=== PATIENT | female | born 1995 | race Caucasian/White ===

== ENCOUNTER → 2016-10-17 | Outpatient (CLI) | payer OTHER ==
--- NOTE | 2016-10-17 21:43 | REP ---
Clinical: Anatomical evaluation. Comparison: None . Findings: Examination demonstrates a single live intrauterine in variable presentation. motion is identified by technologist. Placenta is noted anteriorly and grade zero without evidence for placenta previa or abruption. Amniotic fluid volume is normal. Cervix measures 3.6 cm in length and appears closed. No evidence for nuchal cord. Gestational age by LMP 20 weeks 3 days with CRISTINA 03/03/2017 . Gestational age by current measurements 21 weeks 2 days with CRISTINA 02/25/2017 . FHR equals 143 beats per minute. BPD 4.8 cm 20 weeks 4 days HC 17.8 cm 20 weeks 2 days AC 17.1 cm 22 weeks 0 days FL 3.6 cm 21 weeks 3 days HL 3.5 cm 22 weeks 0 days HC/AC ratio 1.04 Estimated weight 434 grams ( 90th percentile). Anatomical assessment demonstrates normal structures including cranium, choroid plexus, cavum, cerebellum/posterior fossa, facial features, lungs, four-chamber heart/ventricular outflow tracts, diaphragm, stomach, cord insertion/three-vessel cord, kidneys/bladder, spine, and extremities. Impression: Single live intrauterine in variable presentation. Appropriate interval growth is appreciated. Anatomical assessment is complete and normal. Signed by Ari Oden MD 10/17/2016 09:34 P
== END ==
LOC: M RAD 11:51
PROVIDERS: ATTEND Nurse Practitioner Women's Health
DX: Z34.90 Encounter for supervision of normal pregnancy, unspecified, unspecified trimester (principal); Z3A.20 20 weeks gestation of pregnancy

== ENCOUNTER 2016-11-22 23:02 | Emergency (ER) | payer OTHER ==
[2016-11-23] MEDS ORDERED: AMOXICILLIN 500 MG CAP As Ordered ONE (00:46)
--- NOTE | 2016-11-23 00:58 | EDDOCDS ---
Nurse's Notes [facility] Name: Georgia Foster Age: 21 yrs Sex: Female : 1995 Arrival Date: 11/22/2016 Time: 23:02 Bed Triage 2 Private MD: No PCP Diagnosis: Streptococcal pharyngitis Presentation: 11/22 23:09 Presenting complaint: Patient states: since Sunday she has had sore throat that "feels nn1 like its closing up", bilateral ear pain, nasal congestion. Patient reports she is 6 months . Presenting complaint: States 2 children she lives with have bronchitis. Adult Sepsis Screening: The patient does not have new or worsening altered mentation. Patient's respiratory rate is less than 22. Systolic blood pressure is greater than 100. Patient has a qSOFA score of 0- Negative Sepsis Screen. Suicide/Homicide risk assessment- the patient denies having any suicidal and/or homicidal ideations and does not present with any other emotional, behavioral or mental health complaints. 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 Transition of care: patient was not received from another setting of care. 23:09 Acuity: ANEL Level 4 nn1 23:09 Method Of Arrival: Walkin/Carried/Asstd nn1 Triage Assessment: 23:13 General: Appears in no apparent distress, comfortable, Behavior is appropriate for age, nn1 cooperative. Pain: Location: right ear and left ear and throat Pain currently is 7 out of 10 on a pain scale. Pt Declines HIV testing. EENT: Throat is pink with gag reflex present. Respiratory: Airway is patent Respiratory effort is even, unlabored, Respiratory pattern is regular, symmetrical, Denies cough. Derm: Skin is pink, warm & dry. Historical: - Allergies: Latex; - Home Meds: 1. Vitamin Oral tab 1 tab once daily 2. metronidazole 500 mg Oral tab 1 tab every 6 hours 3. terconazole 0.4 % vaginal crea 1 applicatorful once daily - PMHx: UTI; - PSHx: Appendectomy; - Social history: Smoking status: Patient states was never smoker of tobacco. No barriers to communication noted, The patient speaks fluent Urdu, Speaks appropriately for age. - Family history: Not pertinent. - : The pt / caregiver states he / she is not on anticoagulants. Home medication list is obtained from the patient. - Exposure Risk Screening:: None identified. Screenin/09 00:15 Screening information is obtained from the patient. Fall risk: No risks identified. [facility] Assistance ADL's: requires no assistance with activities of daily living. Abuse/DV Screen: The patient / caregiver reports he/she is: not in a situation that causes fear, pain or injury. Nutritional screening: No deficits noted. Advance Directives: There is no active DNR order. home support is adequate. Assessment: 00:15 General: Appears in no apparent distress, comfortable, Behavior is appropriate for age, kmg1 cooperative, pleasant. Pain: Location: right ear and left ear and throat Pain currently is 7 out of 10 on a pain scale. Quality of pain is described as sore. EENT: Reports pain in right ear, left ear, left aspect of posterior pharynx and right aspect of posterior pharynx. Respiratory: Airway is patent Respiratory effort is even, unlabored, Respiratory pattern is regular, symmetrical. 00:53 Reassessment: Patient appears in no apparent distress at this time. No change in prior [facility] assessment. Vital Signs: 11/22 23:04 BP 129 / 73; Pulse 81; Resp 18 S; Temp 97.1(O); Pulse Ox 100% on R/A; Weight 88 kg (M); gr2 Height 5 ft. 6 in. (167.64 cm) (M); Pain 7/10; 23:04 Body Mass Index 31.31 (88.00 kg, 167.64 cm) gr2 Vitals: 23:04 Log In Time: November 22, 2016 at 23:04. gr2 11/23 00:22 Strep Screen is obtained and tested: Positive. Heart Tones 140BPM. [facility] [place] Course: 11/22 23:04 Patient visited by Zulma Najera. gr2 23:04 No PCP is Private Physician. gr2 23:04 Patient moved to Waiting gr2 23:08 Patient visited by Zulma Najera. gr2 23:08 Patient moved to Pre RCE gr2 23:11 Triage Initiated nn1 23:29 Patient moved to Triage 2 km 23:32 Julito Hopper RPA-C is PHCP. ck7 23:32 Cedric Rajan MD is Attending Physician. ck7 23:32 Patient visited by Julito Hopper RPA-C. ck7 0209 00:02 Patient visited by Julito Hopper RPA-C. ck7 00:15 The patient / caregiver is instructed regarding the plan of care and ED course. kmg1 00:15 -Influenza A&B Rapid Antigen - Nose Sent. kmg1 00:29 [facility] Payment Agreement was scanned into [employer] and attached to record. hs2 00:35 Patient visited by Julito Hopper RPA-C. ck7 00:53 No IV's were initiated during this patient's visit. No procedures done that require [facility] assistance. 00:57 Patient visited by Flora Santana RN. [facility] Administered Medications: 00:49 Drug: Amoxicillin 500 mg [amoxicillin 500 mg capsule (1 caps)] Route: PO; km Order Results: Lab Order: -Influenza A&B Rapid Antigen - Nose; SPEC'M 17 00:11 Test: INFLUENZA A RAPID SCR by ICA; Value: INFLUENZA A RESULTS NEGATIVE; Status: F Test: INFLUENZA A RAPID SCR by ICA; Value: Comments:; Status: F Test: INFLUENZA B RAPID SCR by ICA; Value: INFLUENZA B RESULTS NEGATIVE; Status: F Test Note: ; The Influenza test is a direct rapid immunoassay for the qualitative detection of Influenza viral antigen. Cell culture (Viral Culture) testing should be considered to confirm NEGATIVE results and to assist in detecting other viruses that can provide similar clinical symptoms. Please contact the lab within 24 hours ([phone]) if confirmatory testing is desired. Outcome: 00:44 Discharge ordered by Provider. ck7 00:53 Discharge Assessment: Patient awake, alert and oriented x 3. No cognitive and/or kmg1 functional deficits noted. Patient verbalized understanding of disposition instructions. patient administered narcotics - no. The following High Risk Discharge criteria are identified: None. Discharged to home ambulatory. Condition: stable. Discharge instructions given to patient, Instructed on discharge instructions, follow up and referral plans. medication usage, Demonstrated understanding of instructions, medications, Pt was receptive of discharge instructions/ teaching. Prescriptions given X 1. No special radiology studies were completed. Property sent home with patient. 00:57 Patient left the ED. [facility] Signatures: Flora Santana RN RN [facility] Julito Hopper RPA-C RPA-CckFerdinand Martineze gr2 Daniela Rogers,RN RN nn1 Casie Salas, Reg Reg hs2 MTDD
--- NOTE | 2016-11-23 00:58 | EDDOCDS ---
Physician Documentation [facility] Name: Georgia Foster Age: 21 yrs Sex: Female : 1995 Arrival Date: 11/22/2016 Time: 23:02 Bed Triage 2 Private MD: No PCP Disposition: 11/23/16 00:44 Discharged to Home/Self Care. Impression: Streptococcal pharyngitis. - Condition is Stable. - Discharge Instructions: Salt Water Gargle, Strep Throat. - Prescriptions for Amoxicillin 500 mg Oral Capsule - take 1 capsule by ORAL route every 8 hours for 10 days; 30 tablet. - Medication Reconciliation, Local Pharmacy Hours form. - Follow up: Private Physician; When: 2 - 3 days; Reason: Recheck today's complaints, Continuance of care. - Problem is new. - Symptoms have improved. Historical: - Allergies: Latex; - Home Meds: 1. Vitamin Oral tab 1 tab once daily 2. metronidazole 500 mg Oral tab 1 tab every 6 hours 3. terconazole 0.4 % vaginal crea 1 applicatorful once daily - PMHx: UTI; - PSHx: Appendectomy; - Social history: Smoking status: Patient states was never smoker of tobacco. No barriers to communication noted, The patient speaks fluent Nepali, Speaks appropriately for age. - Family history: Not pertinent. - : The pt / caregiver states he / she is not on anticoagulants. Home medication list is obtained from the patient. - Exposure Risk Screening:: None identified. Vital Signs: 11/22 23:04 BP 129 / 73; Pulse 81; Resp 18 S; Temp 97.1(O); Pulse Ox 100% on R/A; Weight 88 kg / gr2 194.01 lbs (M); Height 5 ft. 6 in. (167.64 cm) (M); Pain 7/10; 23:04 Body Mass Index 31.31 (88.00 kg, 167.64 cm) gr2 MDM: 23:47 Heart Tones ordered. ck7 23:47 Obtain sample by nasopharyngeal swab ordered. ck7 23:47 Strep Screen, Nursing ordered. ck7 23:48 -Influenza A&B Rapid Antigen - Nose Ordered. EDMS 23:49 Financial registration complete. pm4 11/23 00:29 [facility] Payment Agreement was scanned into [employer] and attached to record. hs2 00:43 Amoxicillin 500 mg PO once ordered. ck7 00:43 -Influenza A&B Rapid Antigen - Nose Reviewed. ck7 Administered Medications: 00:49 Drug: Amoxicillin 500 mg [amoxicillin 500 mg capsule (1 caps)] Route: PO; kmg1 Signatures: Dispatcher [employer] EDMS Flora Santana RN RN kmg1 Julito Hopper, CECILIAC RPA-Cck7 Daniela Rogers RN RN nn1 Casie Salas, Reg Reg hs2 Man Kelley, Reg Reg pm4 The chart was reviewed and I authenticate all verbal orders and agree with the evaluation and treatment provided.Attachments: 00:29 [facility] Payment Agreement hs2 MTDD
--- NOTE | 2016-11-25 01:57 | EDDOCDS ---
Nurse's Notes [facility] Name: Georgia Foster Age: 21 yrs Sex: Female : 1995 Arrival Date: 11/22/2016 Time: 23:02 Bed Triage 2 Private MD: No PCP Diagnosis: Streptococcal pharyngitis Presentation: 11/22 23:09 Presenting complaint: Patient states: since Sunday she has had sore throat that "feels nn1 like its closing up", bilateral ear pain, nasal congestion. Patient reports she is 6 months . Presenting complaint: States 2 children she lives with have bronchitis. Adult Sepsis Screening: The patient does not have new or worsening altered mentation. Patient's respiratory rate is less than 22. Systolic blood pressure is greater than 100. Patient has a qSOFA score of 0- Negative Sepsis Screen. Suicide/Homicide risk assessment- the patient denies having any suicidal and/or homicidal ideations and does not present with any other emotional, behavioral or mental health complaints. 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 Transition of care: patient was not received from another setting of care. 23:09 Acuity: ANEL Level 4 nn1 23:09 Method Of Arrival: Walkin/Carried/Asstd nn1 Triage Assessment: 23:13 General: Appears in no apparent distress, comfortable, Behavior is appropriate for age, nn1 cooperative. Pain: Location: right ear and left ear and throat Pain currently is 7 out of 10 on a pain scale. Pt Declines HIV testing. EENT: Throat is pink with gag reflex present. Respiratory: Airway is patent Respiratory effort is even, unlabored, Respiratory pattern is regular, symmetrical, Denies cough. Derm: Skin is pink, warm & dry. Historical: - Allergies: Latex; - Home Meds: 1. Vitamin Oral tab 1 tab once daily 2. metronidazole 500 mg Oral tab 1 tab every 6 hours 3. terconazole 0.4 % vaginal crea 1 applicatorful once daily - PMHx: UTI; - PSHx: Appendectomy; - Social history: Smoking status: Patient states was never smoker of tobacco. No barriers to communication noted, The patient speaks fluent Tajik, Speaks appropriately for age. - Family history: Not pertinent. - : The pt / caregiver states he / she is not on anticoagulants. Home medication list is obtained from the patient. - Exposure Risk Screening:: None identified. Screenin/09 00:15 Screening information is obtained from the patient. Fall risk: No risks identified. [facility] Assistance ADL's: requires no assistance with activities of daily living. Abuse/DV Screen: The patient / caregiver reports he/she is: not in a situation that causes fear, pain or injury. Nutritional screening: No deficits noted. Advance Directives: There is no active DNR order. home support is adequate. Assessment: 00:15 General: Appears in no apparent distress, comfortable, Behavior is appropriate for age, kmg1 cooperative, pleasant. Pain: Location: right ear and left ear and throat Pain currently is 7 out of 10 on a pain scale. Quality of pain is described as sore. EENT: Reports pain in right ear, left ear, left aspect of posterior pharynx and right aspect of posterior pharynx. Respiratory: Airway is patent Respiratory effort is even, unlabored, Respiratory pattern is regular, symmetrical. 00:53 Reassessment: Patient appears in no apparent distress at this time. No change in prior [facility] assessment. Vital Signs: 11/22 23:04 BP 129 / 73; Pulse 81; Resp 18 S; Temp 97.1(O); Pulse Ox 100% on R/A; Weight 88 kg (M); gr2 Height 5 ft. 6 in. (167.64 cm) (M); Pain 7/10; 23:04 Body Mass Index 31.31 (88.00 kg, 167.64 cm) gr2 Vitals: 23:04 Log In Time: November 22, 2016 at 23:04. gr2 11/23 00:22 Strep Screen is obtained and tested: Positive. Heart Tones 140BPM. [facility] ED Course: 11/22 23:04 Patient visited by Zulma Najera. gr2 23:04 No PCP is Private Physician. gr2 23:04 Patient moved to Waiting gr2 23:08 Patient visited by Zulma Najera. gr2 23:08 Patient moved to Pre RCE gr2 23:11 Triage Initiated nn1 23:29 Patient moved to Triage 2 km 23:32 Julito Hopper RPA-C is PHCP. ck7 23:32 Cedric Rajan MD is Attending Physician. ck7 23:32 Patient visited by Julito Hopper RPA-C. ck7 11/23 00:02 Patient visited by Julito Hopper RPA-C. ck7 00:15 The patient / caregiver is instructed regarding the plan of care and ED course. kmg1 00:15 -Influenza A&B Rapid Antigen - Nose Sent. kmg1 00:29 [facility] Payment Agreement was scanned into [employer] and attached to record. hs2 00:35 Patient visited by Julito Hopper RPA-C. ck7 00:53 No IV's were initiated during this patient's visit. No procedures done that require [facility] assistance. 00:57 Patient visited by Flora Santana RN. kmg1 11:15 T-Sheet-- Draft Copy was scanned into [employer] and attached to record. gb Administered Medications: 00:49 Drug: Amoxicillin 500 mg [amoxicillin 500 mg capsule (1 caps)] Route: PO; kmg1 Order Results: Lab Order: -Influenza A&B Rapid Antigen - Nose; SPEC'M 17 00:11 Test: INFLUENZA A RAPID SCR by ICA; Value: INFLUENZA A RESULTS NEGATIVE; Status: F Test: INFLUENZA A RAPID SCR by ICA; Value: Comments:; Status: F Test: INFLUENZA B RAPID SCR by ICA; Value: INFLUENZA B RESULTS NEGATIVE; Status: F Test Note: ; The Influenza test is a direct rapid immunoassay for the qualitative detection of Influenza viral antigen. Cell culture (Viral Culture) testing should be considered to confirm NEGATIVE results and to assist in detecting other viruses that can provide similar clinical symptoms. Please contact the lab within 24 hours ([phone]) if confirmatory testing is desired. Outcome: 00:44 Discharge ordered by Provider. ck7 00:53 Discharge Assessment: Patient awake, alert and oriented x 3. No cognitive and/or kmg1 functional deficits noted. Patient verbalized understanding of disposition instructions. patient administered narcotics - no. The following High Risk Discharge criteria are identified: None. Discharged to home ambulatory. Condition: stable. Discharge instructions given to patient, Instructed on discharge instructions, follow up and referral plans. medication usage, Demonstrated understanding of instructions, medications, Pt was receptive of discharge instructions/ teaching. Prescriptions given X 1. No special radiology studies were completed. Property sent home with patient. 00:57 Patient left the ED. [facility] Signatures: Flora Santana, RN RN kmg1 Flores Smiley, Reg Reg gb Julito Hopper, RPA-C RPA-Cck7 Zulma Najera gr2 Daniela RogersRN RN nn1 Casie Salas, Reg Reg hs2 Chart Complete MTDD
--- NOTE | 2016-11-25 01:57 | EDDOCDS ---
Physician Documentation [facility] Name: Georgia Foster Age: 21 yrs Sex: Female : 1995 Arrival Date: 11/22/2016 Time: 23:02 Bed Triage 2 Private MD: No PCP Disposition: 11/23/16 00:44 Discharged to Home/Self Care. Impression: Streptococcal pharyngitis. - Condition is Stable. - Discharge Instructions: Salt Water Gargle, Strep Throat. - Prescriptions for Amoxicillin 500 mg Oral Capsule - take 1 capsule by ORAL route every 8 hours for 10 days; 30 tablet. - Medication Reconciliation, Local Pharmacy Hours form. - Follow up: Private Physician; When: 2 - 3 days; Reason: Recheck today's complaints, Continuance of care. - Problem is new. - Symptoms have improved. Historical: - Allergies: Latex; - Home Meds: 1. Vitamin Oral tab 1 tab once daily 2. metronidazole 500 mg Oral tab 1 tab every 6 hours 3. terconazole 0.4 % vaginal crea 1 applicatorful once daily - PMHx: UTI; - PSHx: Appendectomy; - Social history: Smoking status: Patient states was never smoker of tobacco. No barriers to communication noted, The patient speaks fluent Syriac, Speaks appropriately for age. - Family history: Not pertinent. - : The pt / caregiver states he / she is not on anticoagulants. Home medication list is obtained from the patient. - Exposure Risk Screening:: None identified. Vital Signs: 11/22 23:04 BP 129 / 73; Pulse 81; Resp 18 S; Temp 97.1(O); Pulse Ox 100% on R/A; Weight 88 kg / gr2 194.01 lbs (M); Height 5 ft. 6 in. (167.64 cm) (M); Pain 7/10; 23:04 Body Mass Index 31.31 (88.00 kg, 167.64 cm) gr2 MDM: 23:47 Heart Tones ordered. ck7 23:47 Obtain sample by nasopharyngeal swab ordered. ck7 23:47 Strep Screen, Nursing ordered. ck7 23:48 -Influenza A&B Rapid Antigen - Nose Ordered. EDMS 23:49 Financial registration complete. pm4 11/23 00:29 [facility] Payment Agreement was scanned into [employer] and attached to record. hs2 00:43 Amoxicillin 500 mg PO once ordered. ck7 00:43 -Influenza A&B Rapid Antigen - Nose Reviewed. ck7 11:15 T-Sheet-- Draft Copy was scanned into [employer] and attached to record. gb Administered Medications: 00:49 Drug: Amoxicillin 500 mg [amoxicillin 500 mg capsule (1 caps)] Route: PO; km Signatures: Dispatcher [employer] EDMS Flora Santana RN RN kmg1 Flores Smiley, Reg Reg gb Julito Hopper, RPA-C RPA-Cck7 Daniela Rogers RN RN nn1 Casie Salas, Reg Reg hs2 Man Kelley, Reg Reg pm4 The chart was reviewed and I authenticate all verbal orders and agree with the evaluation and treatment provided.Attachments: 00:29 [facility] Payment Agreement hs2 11:15 T-Sheet-- Draft Copy gb Chart Complete MTDD
--- NOTE | 2016-11-25 01:57 | EDDOCDS ---
Physician Documentation [facility] Name: Georgia Foster Age: 21 yrs Sex: Female : 1995 Arrival Date: 11/22/2016 Time: 23:02 Bed Triage 2 Private MD: No PCP Disposition: 11/23/16 00:44 Discharged to Home/Self Care. Impression: Streptococcal pharyngitis. - Condition is Stable. - Discharge Instructions: Salt Water Gargle, Strep Throat. - Prescriptions for Amoxicillin 500 mg Oral Capsule - take 1 capsule by ORAL route every 8 hours for 10 days; 30 tablet. - Medication Reconciliation, Local Pharmacy Hours form. - Follow up: Private Physician; When: 2 - 3 days; Reason: Recheck today's complaints, Continuance of care. - Problem is new. - Symptoms have improved. Historical: - Allergies: Latex; - Home Meds: 1. Vitamin Oral tab 1 tab once daily 2. metronidazole 500 mg Oral tab 1 tab every 6 hours 3. terconazole 0.4 % vaginal crea 1 applicatorful once daily - PMHx: UTI; - PSHx: Appendectomy; - Social history: Smoking status: Patient states was never smoker of tobacco. No barriers to communication noted, The patient speaks fluent Maltese, Speaks appropriately for age. - Family history: Not pertinent. - : The pt / caregiver states he / she is not on anticoagulants. Home medication list is obtained from the patient. - Exposure Risk Screening:: None identified. Vital Signs: 11/22 23:04 BP 129 / 73; Pulse 81; Resp 18 S; Temp 97.1(O); Pulse Ox 100% on R/A; Weight 88 kg / gr2 194.01 lbs (M); Height 5 ft. 6 in. (167.64 cm) (M); Pain 7/10; 23:04 Body Mass Index 31.31 (88.00 kg, 167.64 cm) gr2 MDM: 23:47 Heart Tones ordered. ck7 23:47 Obtain sample by nasopharyngeal swab ordered. ck7 23:47 Strep Screen, Nursing ordered. ck7 23:48 -Influenza A&B Rapid Antigen - Nose Ordered. EDMS 23:49 Financial registration complete. pm4 11/23 00:29 [facility] Payment Agreement was scanned into [employer] and attached to record. hs2 00:43 Amoxicillin 500 mg PO once ordered. ck7 00:43 -Influenza A&B Rapid Antigen - Nose Reviewed. ck7 11:15 T-Sheet-- Draft Copy was scanned into [employer] and attached to record. gb Administered Medications: 00:49 Drug: Amoxicillin 500 mg [amoxicillin 500 mg capsule (1 caps)] Route: PO; km Signatures: Dispatcher [employer] EDMS Flora Santana RN RN kmg1 Flores Smiley, Reg Reg gb Julito Hopper, RPA-C RPA-Cck7 Daniela Rogers RN RN nn1 Casie Salas, Reg Reg hs2 Man Kelley, Reg Reg pm4 The chart was reviewed and I authenticate all verbal orders and agree with the evaluation and treatment provided.Attachments: 00:29 [facility] [place] Agreement hs2 11:15 T-Sheet-- Draft Copy gb Chart Complete MTDD
== END 2016-11-23 00:57 | disposition home or self-care (01) ==
LOC: M ED 23:02
DX: O99.512 Diseases of the respiratory system complicating pregnancy, second trimester (principal); J02.0 Streptococcal pharyngitis; Z87.440 Personal history of urinary (tract) infections; Z79.899 Other long term (current) drug therapy; Z91.040 Latex allergy status; Z3A.00 Weeks of gestation of pregnancy not specified

== ENCOUNTER 2016-12-16 13:10 | Outpatient (CLI) | payer OTHER ==
[~2016-12-16] VITALS: Ht 165.1 cm; Wt 87.0 kg
[2016-12-16 13:27] VITALS: BP 130/77
[2016-12-16 16:12] VITALS: BP 132/86
== END 2016-12-16 16:30 | disposition home or self-care (01) ==
LOC: M LDO 13:10
PROVIDERS: ATTEND Obstetrics & Gynecology
DX: O26.893 Other specified pregnancy related conditions, third trimester (principal); R10.2 Pelvic and perineal pain; O26.853 Spotting complicating pregnancy, third trimester; Z3A.29 29 weeks gestation of pregnancy

== ENCOUNTER 2016-12-24 17:12 | Outpatient (CLI) | payer OTHER ==
[~2016-12-24] VITALS: Ht 167.6 cm; Wt 88.0 kg
[2016-12-24 17:23] VITALS: BP 117/69
[2016-12-24] MEDS ORDERED: PRENTAB9 PO (17:27)
--- NOTE | 2016-12-24 21:25 | IPNPDOC ---
Obstetrical Progress Note Date of Service The patient was seen on 12/24/16 at 1930. Progress Note SUBJECTIVE: Patient is a 21-year-old female who is a who is 30 weeks 1 day gestation with an CRISTINA of 03/03/2017 based off of her first trimester ultrasound consistent with her LMP. She initiated care in her first trimester with Sherley Phipps CNM. Her has been uncomplicated. She's had a episode of bacterial vaginosis and candidiasis during her . She presents to labor and delivery tonight with complaints of decreased movement, pelvic pain, and pressure. Patient reports that she's been very active today and has not had much rest. She also reports that she is not felt the baby move and 2 days. She reports pelvic pressure and pelvic pain is worse with activity. She denies vaginal bleeding, leaking of fluid, or contractions. Since being in outpatient patient reports that she has felt the baby move multiple times. Allergies: No known drug allergies Current medications: vitamins daily. Obstetrical history: 12/18/2014: of a living female at 40 weeks 5 days gestation weighing 7 lbs. 8 oz. with no complications. 09/27/2015 a 10 week SAB. Medical history: Patient has had varicella-zoster as a child and shingles in 2013. Scoliosis. Surgical: Appendectomy 2011 OBJECTIVE: heart rate baseline 1:30, moderate variability, positive accelerations, no decelerations. Contractions not noted. Urine dipstick done. Specific gravity is 1.020, pH is 5, and a trace of protein was noted. Abdomen is soft and nontender. VITAL SIGNS: Please see below. ASSESSMENT: IUP at 30 weeks 1 day gestation, decreased movement PLAN: Patient to be discharged home with family. An abdominal binder was given to patient to help with her pelvic pain and pressure. Reviewed proper application of abdominal binder. Encouraged patient to wear it when she is active during the day. Encouraged patient to increase her by mouth intake of fluids. Extensive education done on kick counts. Reviewed with patient that if she is not feeling her baby move to do the kick counts and not wait 2 days prior to being seen for this issue. Reviewed other comfort measures for pelvic pain. Reviewed signs and symptoms of labor with patient and danger signs the patient is to report to provider. Patient is to return to routine OB care. VS, I&O, 24H, Fishbone Vital Signs/I&O Vital Signs Date Time Temp Pulse Resp B/P Pulse Ox O2 Delivery O2 Flow Rate FiO2 12/24/16 17:23 97.1 81 18 117/69 RONNIE MANZANO CNM Dec 24, 2016 21:25
== END 2016-12-24 19:00 | disposition home or self-care (01) ==
LOC: M LDO 17:12
PROVIDERS: ATTEND Advanced Practice Midwife
DX: O36.8130 Decreased fetal movements, third trimester, not applicable or unspecified (principal); O26.893 Other specified pregnancy related conditions, third trimester; R10.9 Unspecified abdominal pain; Z3A.30 30 weeks gestation of pregnancy

== ENCOUNTER → 2017-02-08 | Outpatient (REF) | payer OTHER ==
[~2017-02-08] MED LIST: PRENTAB9 PO
== END ==
LOC: M LAB REF 13:29
PROVIDERS: ATTEND Advanced Practice Midwife
DX: Z34.83 Encounter for supervision of other normal pregnancy, third trimester (principal)

== ENCOUNTER 2017-02-10 17:53 | Outpatient (CLI) | payer OTHER ==
[~2017-02-10] VITALS: Ht 165.1 cm; Wt 94.0 kg
[2017-02-10 18:02] VITALS: BP 136/83
== END 2017-02-10 18:30 | disposition home or self-care (01) ==
LOC: M LDO 17:53
PROVIDERS: ATTEND Advanced Practice Midwife
DX: O26.893 Other specified pregnancy related conditions, third trimester (principal); Z3A.37 37 weeks gestation of pregnancy

== ENCOUNTER 2017-02-25 21:35 | Inpatient (IN) | payer OTHER ==
[~2017-02-25] VITALS: Ht 167.6 cm; Wt 94.0 kg
[2017-02-25 21:57] VITALS: BP 128/78
[2017-02-25] MEDS ORDERED: PENICILLIN G POTASSIUM IV 5 MU in D5W MINI-BAG PLUS 100 ML IV STA (22:33)
--- NOTE | 2017-02-25 22:59 | HPE ---
DATE OF ADMISSION: 02/25/2017 REASON FOR ADMISSION: Spontaneous rupture of membranes. HISTORY OF PRESENT ILLNESS: Ms. Foster is a 21-year-old, 3, para 1, who presents at 39 weeks 1 day estimated gestational age by last menstrual period confirmed by ultrasound with estimated date of confinement (EDC) of 03/03/2017, with complaints of leakage of fluid. She reports leakage of fluid that occurred approximately at 3 p.m. today that has continued throughout the day requiring multiple pad and underwear and clothing changes. She reports active movement. Denies any vaginal bleeding. Has had contractions throughout the day. course has been unremarkable. She initiated care in the first trimester with [facility]'s and then transferred at 36 weeks to [facility]. PAST MEDICAL HISTORY: None. PAST SURGICAL HISTORY: She has had an appendectomy. MEDICATIONS: Includes: - vitamins ALLERGIES: No known drug allergies but does have allergies to LATEX. OBSTETRICAL HISTORY: She is a 3, para 1. She has had one term vaginal delivery and one miscarriage. SOCIAL HISTORY: She denies any alcohol, tobacco, or drug use during her . PHYSICAL EXAMINATION: Her vital signs are stable, she is afebrile. She has a category 1 heart rate tracing with contractions approximately every 4-5 minutes. GENERAL APPEARANCE: Well-appearing, in no acute distress. LUNGS: Clear to auscultation bilaterally. CARDIOVASCULAR: Heart regular rate and rhythm. ABDOMEN: Soft, gravid, nontender. Estimated weight (EFW) 3400 grams. CERVICAL EXAM: She is 4 cm dilated, 90% effaced, Nitrazine was positive. Pooling was positive, appeared to be grossly ruptured. There was a fore bag that was palpated. LABORATORY DATA: Her blood type is O positive, antibody screen is negative, Rubella is immune, RPR is nonreactive, hepatitis surface antigen is negative, HIV is negative. She had a normal 1-hour Glucola. She is group B Streptococcus (GBS) positive. ASSESSMENT: 1. The patient is a 21-year-old 3, para 1 at 39 weeks 1 day estimated gestational age with spontaneous rupture of membranes. 2. Reassuring status. 3. Group B Streptococcus (GBS) positive. PLAN: 1. Admit to labor and delivery. Complete blood count (CBC), rapid plasma reagin (RPR), type and screen. 2. Antibiotics for group B Streptococcus (GBS) positive. 3. Anticipate spontaneous vaginal delivery.
[2017-02-25 23:34] VITALS: BP 125/77
[2017-02-25 23:38] LABS: MEAN CORPUSCULAR HEMOGLOBIN 29.4 pg (27.0-33.0); MEAN CORPUSCULAR HGB CONC 33.9 g/dl (32.0-36.5); MEAN CORPUSCULAR VOLUME 86.7 fl (80.0-96.0); RED CELL DISTRIBUTION WIDTH 14.7 % (11.5-14.5)
[2017-02-26] VITALS (25 sets, daily range): BP systolic 115–155; BP diastolic 51–95
[2017-02-26] MEDS ORDERED: BUTORPHANOL 2 MG/ML INJ (J0595) IV ONE (02:00)
[2017-02-26] MEDS ORDERED: PROMETHAZINE INJ 25 MG/ML VIAL (J2550) IV PRN (02:00)
[2017-02-26] MEDS ORDERED: OXYTOCIN 30 UNITS IN 0.9% NaCl 500ML IV BAG (J2590) As Ordered ONE (02:18)
[2017-02-26] MEDS ORDERED: FENTANYL 2MCG/ML ROPIVACAINE 0.2% IN 0.9% NACL 200ML IVBAG As Ordered ONE (02:37)
[2017-02-26] MEDS ORDERED: ONDANSETRON 4MG/2ML VIAL (J2405) IV PRN (03:00)
[2017-02-26] MEDS ORDERED: FENTANYL/ROPIVACAINE/NACL BAG 200 ML EPIDURAL SCH (03:00)
[2017-02-26] MEDS ORDERED: EPIDURAL/PCA KEYS XX PRN (03:00)
[2017-02-26] MEDS ORDERED: diphenhydrAMINE INJ 50MG/ML VIAL (J1200) IV PRN (03:00)
[2017-02-26] MEDS ORDERED: LACTATED RINGER'S 1000 ML IV PRN (03:00)
[2017-02-26] MEDS ORDERED: PENICILLIN G POTASSIUM IV 2.5 MU in D5W 100 ML IV SCH (03:00)
[2017-02-26] MEDS ORDERED: REFRIGERATOR IV KEYS XX PRN (03:00)
[2017-02-26] MEDS ORDERED: NALOXONE INJ 0.4 MG/1 ML VIAL (J2310) IV PRN (03:00)
[2017-02-26] MEDS ORDERED: EPIDURAL COMMENT XX SCH (03:00)
[2017-02-26] MEDS ORDERED: ePHEDrine SULFATE 25 MG/5 ML(5MG/ML) SYRINGE IV PRN (03:00)
[2017-02-26] MEDS ORDERED: MEASLES,MUMPS,RUBELLA VACCINE INJ (MMR-II) (90707) SC SCH (04:45)
[2017-02-26] MEDS ORDERED: OXYTOCIN DRIP 30 UNITS in APPROPRIATE DILUENT 1 EA IV SCH (04:45)
[2017-02-26] MEDS ORDERED: DOCUSATE SODIUM 100 MG CAP PO PRN (04:45)
[2017-02-26] MEDS ORDERED: RHOGAM 300 MCG (1500 IU) INJ (J2790) IM SCH (04:45)
[2017-02-26] MEDS ORDERED: ANUSOL HC CREAM 30GM TOP PRN (04:45)
[2017-02-26] MEDS ORDERED: ACETAMINOPHEN 500 MG TAB PO PRN (04:45)
[2017-02-26] MEDS ORDERED: METHYLERGONOVINE MALEATE 0.2 MG TAB PO PRN (04:45)
[2017-02-26] MEDS ORDERED: DIBUCAINE 1% OINTMENT 30GM TOP PRN (04:45)
[2017-02-26] MEDS ORDERED: MOM 30ML SUSPENSION UDC PO PRN (04:45)
[2017-02-26] MEDS ORDERED: IBUPROFEN 800 MG TAB PO PRN (04:45)
--- NOTE | 2017-02-26 04:57 | DN ---
DATE OF DELIVERY: 02/26/2017 TIME OF : 0305 GENDER: Male. SCORES: 9 and 9. WEIGHT: 7 pounds 3 ounces or 3246 grams. ESTIMATED BLOOD LOSS: 300 mL. ANESTHESIA: Epidural. LACERATIONS: None. COUNTS: 5 laparotomy sponges accounted for prior to and after delivery. DELIVERY NOTE: On 02/26/2017, at 0305, Mrs. Foster, a 21-year-old 3, now para 2 had a spontaneous vaginal delivery of a liveborn male , scores 9 and 9, weight 7 pounds 3 ounces or 3246 grams. Head was delivered occiput anterior (OA) over an intact perineum followed by delivery of anterior and posterior shoulders and corpus. Infant was handed to mother with a good cry. Cord was clamped times two, was cut. Cord blood was then obtained. Placenta was drained and delivered grossly intact. A premixed bag of 500 mL of normal saline with 30 units of Pitocin was then bolused along with uterine massage until the uterus was firm. Upon inspection, the cervix, vagina, and perineum were grossly intact and hemostatic. Mother and baby recovered in stable condition. The mother has decided to name her son
[2017-02-26] MEDS: PRENATAL VITAMIN TAB PO SCH (08:05)
[2017-02-27 06:14] VITALS: BP 127/68
[2017-02-27] MEDS ORDERED: IBUP-1114 PO (08:08)
[2017-02-27] MEDS ORDERED: ACET50TA PO (08:08)
[2017-02-27] MEDS ORDERED: PRENTAB9 PO (08:08)
[2017-02-27] MEDS: PRENATAL VITAMIN TAB PO SCH (08:56)
== END 2017-02-27 12:44 | disposition home or self-care (01) | DRG 560 ==
LOC: M LDO 21:35 → M LDI 22:27 → M OBS 02-26 05:47
PROVIDERS: ADMIT Obstetrics & Gynecology; ATTEND Obstetrics & Gynecology
PROC: 10E0XZZ Delivery of Products of Conception, External Approach (ICD-10-PCS; principal; 2017-02-26)
DX: O99.824 Streptococcus B carrier state complicating childbirth (principal); Z91.040 Latex allergy status; Z37.0 Single live birth; Z3A.39 39 weeks gestation of pregnancy; Z79.899 Other long term (current) drug therapy

== ENCOUNTER → 2017-06-28 | Outpatient (REF) | payer OTHER ==
[~2017-06-28] MED LIST changes: +ACET50TA PO; +IBUP-1114 PO
[2017-06-28 18:32] LABS: HCG, SERUM QUANTITATIVE 5483 MIU/ML
[2017-06-28 19:35] LABS: MEAN CORPUSCULAR HEMOGLOBIN 32.4 pg (27.0-33.0); MEAN CORPUSCULAR HGB CONC 35.5 g/dl (32.0-36.5); MEAN CORPUSCULAR VOLUME 91.3 fl (80.0-96.0); RED CELL DISTRIBUTION WIDTH 12.6 % (11.5-14.5); WHITE BLOOD COUNT 6.3 K/mm3 (4.0-10.0)
[2017-06-29 12:56] LABS: HBsAg Prenatal NEGATIVE (NEGATIVE)
== END ==
LOC: M LAB REF 16:51
PROVIDERS: ATTEND Advanced Practice Midwife
DX: O36.80X0 Pregnancy with inconclusive fetal viability, not applicable or unspecified (principal)

== ENCOUNTER → 2017-07-26 | Outpatient (REF) | payer OTHER | LOC: M LAB REF 12:08 | PROVIDERS: ATTEND Advanced Practice Midwife | DX: Z34.81 Encounter for supervision of other normal pregnancy, first trimester (principal); Z3A.09 9 weeks gestation of pregnancy ==

== ENCOUNTER → 2017-08-29 | Outpatient (REF) | payer OTHER ==
[2017-08-29 14:29] LABS: ALBUMIN/GLOBULIN RATIO 0.71 (1.00-1.93); ALKALINE PHOSPHATASE 75 U/L (45-117); ALT/SGPT 18 U/L (12-78); ANION GAP 8 MEQ/L (8-16); AST/SGOT 13 U/L (7-37); BILIRUBIN,TOTAL 0.3 MG/DL (0.2-1.0); BLOOD UREA NITROGEN 6 MG/DL (7-18); CALCIUM LEVEL 8.5 MG/DL (8.5-10.1); CARBON DIOXIDE LEVEL 24 MEQ/L (21-32); CHLORIDE LEVEL 106 MEQ/L (98-107); CREATININE FOR GFR 0.45 MG/DL (0.55-1.02); FREE T4 0.95 NG/DL (0.76-1.46); GLOMERULAR FILTRATION RATE > 60.0 (>60); GLUCOSE, FASTING 58 MG/DL (70-105); SODIUM LEVEL 138 MEQ/L (136-145); TOTAL PROTEIN 7.2 GM/DL (6.4-8.2)
== END ==
LOC: M LAB REF 13:08
PROVIDERS: ATTEND Advanced Practice Midwife
DX: Z34.82 Encounter for supervision of other normal pregnancy, second trimester (principal); E16.1 Other hypoglycemia

== ENCOUNTER 2017-10-15 11:04 | Outpatient (CLI) | payer OTHER | END 2017-10-15 13:05 | disposition home or self-care (01) | LOC: M LDO 11:04 | DX: O99.89 Other specified diseases and conditions complicating pregnancy, childbirth and the puerperium (principal); R10.11 Right upper quadrant pain; R11.0 Nausea; R19.7 Diarrhea, unspecified; Z87.59 Personal history of other complications of pregnancy, childbirth and the puerperium; Z3A.20 20 weeks gestation of pregnancy; Z79.899 Other long term (current) drug therapy ==

== ENCOUNTER → 2018-01-08 | Outpatient (CLI) | payer OTHER ==
[2018-01-08 09:41] LABS: HEMATOCRIT 33.6 % (36.0-47.0); HEMOGLOBIN 11.2 g/dl (12.0-16.0); MEAN CORPUSCULAR HEMOGLOBIN 28.4 pg (27.0-33.0); MEAN CORPUSCULAR HGB CONC 33.3 g/dl (32.0-36.5); MEAN CORPUSCULAR VOLUME 85.1 fl (80.0-96.0); PLATELET COUNT, AUTOMATED 179 10^3/uL (150-450); RED BLOOD COUNT 3.95 10^6/uL (4.00-5.40); RED CELL DISTRIBUTION WIDTH 13.7 % (11.5-14.5); WHITE BLOOD COUNT 8.5 10^3/uL (4.0-10.0)
[2018-01-08 10:11] LABS: GLUCOSE CHALLENGE TEST 1 HOUR 134 MG/DL (LESS THAN 140)
== END ==
LOC: M LAB 07:07
DX: Z34.82 Encounter for supervision of other normal pregnancy, second trimester (principal)
CPT/HCPCS: 82950

== ENCOUNTER 2018-02-11 07:57 | Inpatient (IN) | payer OTHER ==
[2018-02-11] MEDS: LACTATED RINGER'S 1000 ML IV (08:56)
[2018-02-11] MEDS: PRENATAL VITAMINS CHEWABLE TABLET PO (09:00)
[2018-02-11 09:54] LABS: HEMATOCRIT 33.9 % (36.0-47.0); HEMOGLOBIN 11.2 g/dl (12.0-15.5); MEAN CORPUSCULAR VOLUME 81.7 fl (80.0-96.0); PLATELET COUNT, AUTOMATED 157 10^3/uL (150-450); RED BLOOD COUNT 4.15 10^6/uL (4.00-5.40); RED CELL DISTRIBUTION WIDTH 15.1 % (11.5-14.5); WHITE BLOOD COUNT 7.5 10^3/uL (4.0-10.0)
[2018-02-11 10:23] LABS: AMPHETAMINES URINE REFLEX NEGATIVE (NEGATIVE); BARBITURATES URINE REFLEX NEGATIVE (NEGATIVE); BENZODIAZEPINES URINE REFLEX NEGATIVE (NEGATIVE); CANNABINOIDS URINE REFLEX NEGATIVE (NEGATIVE); COCAINE METABOLITE URINE REFLE NEGATIVE (NEGATIVE); METHADONE URINE REFLEX NEGATIVE (NEGATIVE); OPIATES URINE REFLEX NEGATIVE (NEGATIVE); PHENCYCLIDINE URINE REFLEX NEGATIVE (NEGATIVE)
[2018-02-11] MEDS ORDERED: OXYTOCIN 30 UNITS IN 0.9% NaCl 500ML IV BAG (J2590) As Ordered (10:52)
[2018-02-11] MEDS: OXYTOCIN DRIP 30 UNITS in APPROPRIATE DILUENT 1 EA IV (11:51)
[2018-02-11] MEDS ORDERED: ANUSOL HC CREAM 30GM TOP (12:00)
[2018-02-11] MEDS ORDERED: ACETAMINOPHEN 500 MG TAB PO (12:00)
[2018-02-11] MEDS ORDERED: DOCUSATE SODIUM 100 MG CAP PO (12:00)
[2018-02-11] MEDS ORDERED: DIBUCAINE 1% OINTMENT 30GM TOP (12:00)
[2018-02-11] MEDS ORDERED: METHYLERGONOVINE MALEATE 0.2 MG TAB PO (12:00)
[2018-02-11] MEDS: MEASLES,MUMPS,RUBELLA VACCINE INJ (MMR-II) (90707) SC (15:57)
[2018-02-11] MEDS: RHOGAM 300 MCG (1500 IU) INJ (J2790) IM (15:57)
[2018-02-12] MEDS: IBUPROFEN 800 MG TAB PO (01:24)
[2018-02-12] MEDS: PRENATAL VITAMINS CHEWABLE TABLET PO (08:54)
== END 2018-02-12 15:00 | disposition home or self-care (01) | DRG 560 ==
LOC: M LDO 07:57 → M LDI 09:04 → M OBS 13:01
PROVIDERS: Advanced Practice Midwife
PROC: 10E0XZZ Delivery of Products of Conception, External Approach (ICD-10-PCS; principal; 2018-02-11)
DX: O80 Encounter for full-term uncomplicated delivery (principal); Z3A.37 37 weeks gestation of pregnancy; Z37.0 Single live birth

== ENCOUNTER 2018-07-05 09:00 | Day surgery (SDC) | payer OTHER ==
[~2018-07-05 09:00] MED LIST changes: -ACET50TA PO; -IBUP-1114 PO; +LR 1,000 ML IV; -PRENTAB9 PO
[2018-07-05 09:46] LABS: HEMATOCRIT 43.4 % (36.0-47.0); HEMOGLOBIN 14.5 g/dl (12.0-15.5); MEAN CORPUSCULAR HEMOGLOBIN 28.9 pg (27.0-33.0); MEAN CORPUSCULAR HGB CONC 33.4 g/dl (32.0-36.5); MEAN CORPUSCULAR VOLUME 86.5 fl (80.0-96.0); PLATELET COUNT, AUTOMATED 254 10^3/uL (150-450); RED BLOOD COUNT 5.02 10^6/uL (4.00-5.40); RED CELL DISTRIBUTION WIDTH 12.9 % (11.5-14.5); WHITE BLOOD COUNT 6.1 10^3/uL (4.0-10.0)
[2018-07-05 09:59] LABS: CONTROL LINE UCG INT CTR LINE PRESENT; URINE PREG TEST NEGATIVE (NEGATIVE)
[2018-07-05] MEDS ORDERED: KETOROLAC 60 MG/2 ML VIAL (J1885) As Ordered (11:19)
[2018-07-05] MEDS ORDERED: ONDANSETRON 4MG/2ML VIAL (J2405) As Ordered (11:19)
[2018-07-05] MEDS ORDERED: NEOSTIGMINE 10 MG/10 ML VIAL (J2710) As Ordered (11:19)
[2018-07-05] MEDS ORDERED: dexameTHASONE 4 MG/ML 1ML VIAL (J1100) As Ordered (11:19)
[2018-07-05] MEDS ORDERED: LIDOCAINE 2% INJ 100 MG/5 ML SDV (FOR ANES.) As Ordered (11:19)
[2018-07-05] MEDS ORDERED: GLYCOPYRROLATE INJ 0.2 MG/ML 2 ML VIAL As Ordered (11:19)
[2018-07-05] MEDS ORDERED: PROPOFOL 200 MG/20 ML VIAL As Ordered (11:19)
[2018-07-05] MEDS ORDERED: fentaNYL 100 MCG/2 ML INJECTION (J3010) As Ordered ×2 (11:20→13:33)
[2018-07-05] MEDS ORDERED: MIDAZOLAM INJ 2 MG/2 ML VIAL (J2250) As Ordered (11:20)
[2018-07-05] MEDS ORDERED: ROCURONIUM BROMIDE 50 MG/5 ML VIAL As Ordered (11:23)
[2018-07-05] MEDS: ACETAMINOPHEN 650 MG SUPP As Ordered (12:21)
[2018-07-05] MEDS: BUPIVACAINE/EPIN 0.25% 30 ML VIAL As Ordered (13:04)
[2018-07-05] MEDS ORDERED: PERCOCET 5MG/325MG TAB As Ordered (13:33)
[2018-07-05] MEDS: PERCOCET 5MG/325MG TAB PO (13:35)
[2018-07-05] MEDS: fentaNYL 100 MCG/2 ML INJECTION (J3010) IV ×2 (13:36→13:46)
[2018-07-05] MEDS ORDERED: PERCOCET 5MG/325MG TAB PO (13:45)
[2018-07-05] MEDS ORDERED: MEPERIDINE INJ 25 MG/ML VIAL (J2175) IV (13:45)
[2018-07-05] MEDS ORDERED: METOCLOPRAMIDE INJ 10MG/2ML VIAL (J2765) IV (13:45)
[2018-07-05] MEDS ORDERED: LR 1,000 ML IV (13:45)
[2018-07-05] MEDS ORDERED: ONDANSETRON 4MG/2ML VIAL (J2405) IV (13:45)
[2018-07-06] MEDS ORDERED: IBUPROFEN 800 MG TAB PO (18:00)
== END 2018-07-05 15:50 | disposition home or self-care (01) ==
LOC: M SDC 09:00
DX: Z30.2 Encounter for sterilization (principal); Z30.432 Encounter for removal of intrauterine contraceptive device; F41.9 Anxiety disorder, unspecified
CPT/HCPCS: 58661

== ENCOUNTER 2018-07-13 09:36 | Emergency (ER) | payer OTHER ==
[2018-07-13] MEDS: methylPREDNISolone INJ 125 MG/2 ML VIAL (J2930) IV (11:03)
[2018-07-13] MEDS: diphenhydrAMINE INJ 50MG/ML VIAL (J1200) IV (11:03)
[2018-07-13] MEDS: NS 1,000 ML IV (11:04)
[2018-07-13 11:06] LABS: BASO % 0.4 % (0.0-1.0); EOS # 0.4 10^3/uL (0.0-0.50); EOS % 6.3 % (0.0-3.0); HEMATOCRIT 40.9 % (36.0-47.0); HEMOGLOBIN 13.8 g/dl (12.0-15.5); IMMATURE GRANULOCYTE % 0.4 % (0-3.0); LYMPH # 1.5 10^3/uL (1.5-6.5); LYMPH % 25.7 % (24.0-44.0); MEAN CORPUSCULAR HEMOGLOBIN 29.2 pg (27.0-33.0); MEAN CORPUSCULAR HGB CONC 33.7 g/dl (32.0-36.5); MEAN CORPUSCULAR VOLUME 86.5 fl (80.0-96.0); MONO # 0.6 10^3/uL (0.0-0.8); MONO % 10.4 % (0.0-5.0); NEUTROPHILS # 3.2 10^3/uL (1.8-7.7); NEUTROPHILS % 56.8 % (36.0-66.0); PLATELET COUNT, AUTOMATED 236 10^3/uL (150-450); RED BLOOD COUNT 4.73 10^6/uL (4.00-5.40); RED CELL DISTRIBUTION WIDTH 12.7 % (11.5-14.5); WHITE BLOOD COUNT 5.7 10^3/uL (4.0-10.0)
[2018-07-13] MEDS: FAMOTIDINE INJ 20MG/2ML VIAL (S0028) IVP (11:14)
[2018-07-13 11:29] LABS: ANION GAP 6 MEQ/L (8-16); BLOOD UREA NITROGEN 11 MG/DL (7-18); CALCIUM LEVEL 8.2 MG/DL (8.5-10.1); CARBON DIOXIDE LEVEL 28 MEQ/L (21-32); CHLORIDE LEVEL 110 MEQ/L (98-107); CREATININE FOR GFR 0.69 MG/DL (0.55-1.30); GLOMERULAR FILTRATION RATE > 60.0 (>60); GLUCOSE, FASTING 74 MG/DL (70-100); POTASSIUM SERUM 3.7 MEQ/L (3.5-5.1); SODIUM LEVEL 144 MEQ/L (136-145)
== END 2018-07-13 14:20 | disposition home or self-care (01) ==
LOC: M ED 09:36
DX: L76.34 Postprocedural seroma of skin and subcutaneous tissue following other procedure (principal); L50.9 Urticaria, unspecified; N92.0 Excessive and frequent menstruation with regular cycle; Z91.040 Latex allergy status
CPT/HCPCS: J1200

== ENCOUNTER 2019-04-11 09:38 | Emergency (ER) | payer OTHER ==
[~2019-04-11] VITALS: Ht 165.1 cm; Wt 91.4 kg
[~2019-04-11 09:38] MED LIST changes: +DIPH50CA PO; +IBUP-1114 PO; +IBUP80TA PO; -LR 1,000 ML IV; +MAPA500T2 PO; +PERCOCET PO; +PRED20TA PO; +PRENTAB9 PO
[2019-04-11] MEDS ORDERED: ONDANSETRON 4MG/2ML VIAL (J2405) IV ONE (10:00)
[2019-04-11] MEDS ORDERED: NS 1,000 ML IV ONE (10:00)
[2019-04-11 10:20] LABS: BASO % 0.3 % (0.0-1.0); EOS # 0.2 10^3/uL (0.0-0.50); EOS % 1.7 % (0.0-3.0); HEMATOCRIT 43.8 % (36.0-47.0); HEMOGLOBIN 15.4 g/dl (12.0-15.5); LYMPH # 1.4 10^3/uL (1.5-6.5); LYMPH % 14.7 % (24.0-44.0); MEAN CORPUSCULAR HGB CONC 35.2 g/dl (32.0-36.5); MEAN CORPUSCULAR VOLUME 88.1 fl (80.0-96.0); MONO # 0.6 10^3/uL (0.0-0.8); MONO % 6.7 % (0.0-5.0); NEUTROPHILS # 7.2 10^3/uL (1.8-7.7); NEUTROPHILS % 76.3 % (36.0-66.0); PLATELET COUNT, AUTOMATED 214 10^3/uL (150-450); RED BLOOD COUNT 4.97 10^6/uL (4.00-5.40); WHITE BLOOD COUNT 9.4 10^3/uL (4.0-10.0)
[2019-04-11 10:52] LABS: ALBUMIN 3.8 GM/DL (3.2-5.2); ALT/SGPT 23 U/L (12-78); AMYLASE 45 U/L (25-115); BILIRUBIN,DIRECT 0.2 MG/DL (0.0-0.2); BILIRUBIN,TOTAL 0.6 MG/DL (0.2-1.0); BLOOD UREA NITROGEN 9 MG/DL (7-18); CALCIUM LEVEL 8.1 MG/DL (8.5-10.1); CARBON DIOXIDE LEVEL 23 MEQ/L (21-32); CHLORIDE LEVEL 110 MEQ/L (98-107); CREATININE FOR GFR 0.66 MG/DL (0.55-1.30); GLOMERULAR FILTRATION RATE > 60.0 (>60); GLUCOSE, FASTING 88 MG/DL (70-100); LIPASE 256 U/L (73-393); POTASSIUM SERUM 3.7 MEQ/L (3.5-5.1); SODIUM LEVEL 139 MEQ/L (136-145); TOTAL PROTEIN 7.6 GM/DL (6.4-8.2)
--- NOTE | 2019-04-11 11:14 | REP ---
Clinical: Right upper quadrant epigastric pain. Technique: Real time quezada scale ultrasound examination using curved array transducer. Findings: Liver and pancreas are normal in contour, size, echogenicity without focal hepatic or pancreatic lesion identified. The gallbladder is contracted but without gallstones, wall thickening, or pericholecystic fluid. No biliary ductal dilatation is appreciated and the common bile duct measures 5.4 mm diameter. The right kidney is normal in reniform shape without hydronephrosis and measures 11.2 x 4.7 x 4.0 cm. No ascites. Impression: Normal right upper quadrant ultrasound. Electronically Signed by Ari Oden MD 04/11/2019 11:06 A
[2019-04-11] MEDS ORDERED: PEPC1TAB5 PO (11:37)
[2019-04-11] MEDS ORDERED: ONDA4TAB6 PO (11:37)
[2019-04-11 11:48] VITALS: BP 121/72
== END 2019-04-11 11:50 | disposition home or self-care (01) ==
LOC: M ED 09:38
DX: R11.0 Nausea (principal); R19.7 Diarrhea, unspecified
CPT/HCPCS: 76705; 80048; 80076; 82150; 83690; 85025; 96361; 96374; 99284; J2405

== ENCOUNTER 2020-04-15 10:51 | Emergency (ER) | payer OTHER ==
[~2020-04-15] VITALS: Ht 167.6 cm; Wt 100.3 kg
[~2020-04-15 10:51] MED LIST changes: +ONDA4TAB6 PO; +PEPC1TAB5 PO
[2020-04-15] MEDS ORDERED: NS 1,000 ML IV SCH (11:13)
[2020-04-15] MEDS ORDERED: ASPIRIN 81 MG CHEW TABLET PO ONE (11:15)
[2020-04-15 11:50] LABS: BASO % 0.3 % (0.0-1.0); EOS # 0.2 10^3/uL (0.0-0.5); EOS % 2.4 % (0.0-3.0); HEMATOCRIT 42.1 % (36.0-47.0); HEMOGLOBIN 14.6 g/dl (12.0-15.5); LYMPH # 1.8 10^3/uL (1.5-5.0); LYMPH % 29.1 % (24.0-44.0); MEAN CORPUSCULAR HEMOGLOBIN 31.1 pg (27.0-33.0); MEAN CORPUSCULAR HGB CONC 34.7 g/dl (32.0-36.5); MEAN CORPUSCULAR VOLUME 89.6 fl (80.0-96.0); MONO # 0.6 10^3/uL (0.0-0.8); MONO % 10.3 % (0.0-5.0); NEUTROPHILS # 3.6 10^3/uL (1.5-8.5); NEUTROPHILS % 57.7 % (36.0-66.0); PLATELET COUNT, AUTOMATED 209 10^3/uL (150-450); WHITE BLOOD COUNT 6.2 10^3/uL (4.0-10.0)
[2020-04-15 12:04] LABS: INR 1.1; PROTHROMBIN TIME 13.9 SECONDS (11.8-14.0)
[2020-04-15 12:23] LABS: HCG, SERUM QUALITATIVE NEGATIVE (NEGATIVE)
[2020-04-15 12:24] LABS: ALBUMIN 3.6 GM/DL (3.2-5.2); ALT/SGPT 32 U/L (12-78); BILIRUBIN,DIRECT 0.2 MG/DL (0.0-0.2); BILIRUBIN,TOTAL 0.7 MG/DL (0.2-1.0); BLOOD UREA NITROGEN 10 MG/DL (7-18); CALCIUM LEVEL 8.8 MG/DL (8.5-10.1); CARBON DIOXIDE LEVEL 28 MEQ/L (21-32); CHLORIDE LEVEL 106 MEQ/L (98-107); CK-MB VALUE MASS < 1.0 NG/ML (<3.6); CPK CREATINE PHOSPHOKINASE 173 U/L (26-192); CREATININE FOR GFR 0.74 MG/DL (0.55-1.30); FREE T4 1.01 NG/DL (0.76-1.46); GLOMERULAR FILTRATION RATE > 60.0 (>60); GLUCOSE, FASTING 75 MG/DL (70-100); LIPASE 202 U/L (73-393); MB/CK RELATIVE INDEX 0.58 (< OR =4); POTASSIUM SERUM 3.6 MEQ/L (3.5-5.1); SODIUM LEVEL 139 MEQ/L (136-145); TOTAL PROTEIN 7.4 GM/DL (6.4-8.2); TROPONIN I < 0.02 NG/ML (< 0.10)
[2020-04-15 12:40] LABS: D-DIMER QUANT 355.79 ng/ml (<500)
--- NOTE | 2020-04-15 12:56 | REP ---
Clinical: Chest pain . Comparison: None . Findings: The mediastinum and cardiac silhouette are stable and within normal limits for portable technique. The lung weeks are clear without acute consolidation, effusion, or pneumothorax. Skeletal structures are intact. Impression: No acute cardiopulmonary process appreciated. Electronically Signed by Ari Oden MD 04/15/2020 12:48 P
[2020-04-15 13:17] VITALS: BP 117/0
--- NOTE | 2020-04-16 00:36 | ECGEPIP ---
[facility] - ED Test Date: 2020-04-15 Pat Name: PARMINDER DUMONT Department: Room: - Gender: Female Director Of Placement: : 1995 Requested By: BRITTANEY SHEEHAN Order Number: [id number] Reading MD: Delfin Velazco Measurements Intervals [place] Rate: 73 P: 60 CO: 154 QRS: 44 QRSD: 106 T: 33 QT: 405 QTc: 447 Interpretive Statements SINUS RHYTHM Comparison tracing not on file Electronically Signed on 04-16-2020 0:36:43 EDT by Delfin Velazco
== END 2020-04-15 13:18 | disposition home or self-care (01) ==
LOC: M ED 10:51
DX: R07.89 Other chest pain (principal); Z91.040 Latex allergy status

== ENCOUNTER → 2020-05-19 | Outpatient (CLI) | payer OTHER ==
[~2020-05-19] MED LIST changes: +OMEP40CA97 PO
== END ==
LOC: M LABSMTC 12:00
PROVIDERS: ATTEND Family Medicine
DX: Z11.59 Encounter for screening for other viral diseases (principal); Z20.828 Contact with and (suspected) exposure to other viral communicable diseases
CPT/HCPCS: C9803; U0003

== ENCOUNTER 2020-08-07 07:41 | Emergency (ER) | payer OTHER ==
[~2020-08-07] VITALS: Ht 167.6 cm; Wt 98.6 kg
[~2020-08-07 07:41] MED LIST changes: -OMEP40CA97 PO
[2020-08-07] MEDS ORDERED: ONDANSETRON 4MG/2ML VIAL IV ONE (08:15)
[2020-08-07] MEDS ORDERED: NS 1,000 ML IV ONE (08:15)
[2020-08-07] MEDS ORDERED: PANTOPRAZOLE 40MG VIAL (C9113 PER 1) IV ONE (08:15)
[2020-08-07 08:24] LABS: BASO % 0.5 % (0.0-1.0); EOS # 0.2 10^3/uL (0.0-0.5); EOS % 2.9 % (0.0-3.0); HEMOGLOBIN 14.3 g/dl (12.0-15.5); LYMPH # 1.5 10^3/uL (1.5-5.0); LYMPH % 24.4 % (24.0-44.0); MEAN CORPUSCULAR HEMOGLOBIN 30.1 pg (27.0-33.0); MEAN CORPUSCULAR VOLUME 88.4 fl (80.0-96.0); MONO # 0.5 10^3/uL (0.0-0.8); MONO % 7.6 % (0.0-5.0); NEUTROPHILS # 4.1 10^3/uL (1.5-8.5); NEUTROPHILS % 64.4 % (36.0-66.0); PLATELET COUNT, AUTOMATED 219 10^3/uL (150-450); RED BLOOD COUNT 4.75 10^6/uL (4.00-5.40); WHITE BLOOD COUNT 6.3 10^3/uL (4.0-10.0)
--- NOTE | 2020-08-07 08:33 | REP ---
INDICATION: Abdominal Pain COMPARISON: None. TECHNIQUE: Upright view of the chest with supine and upright views of the abdomen and pelvis. FINDINGS: Frontal upright view of the chest demonstrates no acute cardiopulmonary process or free air below the diaphragm to suspect pneumoperitoneum. Supine and upright views of the abdomen and pelvis demonstrate nonspecific bowel gas pattern without obstruction or perforation. No organomegaly. Skeletal structures normal for age. IMPRESSION: Nonspecific bowel gas pattern. <Electronically signed by Ari Oden > 08/07/20 1406
[2020-08-07 08:54] LABS: ALBUMIN 3.5 GM/DL (3.2-5.2); ALT/SGPT 23 U/L (12-78); BILIRUBIN,DIRECT 0.2 MG/DL (0.0-0.2); BILIRUBIN,TOTAL 0.8 MG/DL (0.2-1.0); BLOOD UREA NITROGEN 7 MG/DL (7-18); CALCIUM LEVEL 8.3 MG/DL (8.5-10.1); CARBON DIOXIDE LEVEL 25 MEQ/L (21-32); CHLORIDE LEVEL 107 MEQ/L (98-107); CK-MB VALUE MASS < 1.0 NG/ML (<3.6); CPK CREATINE PHOSPHOKINASE 65 U/L (26-192); FREE T4 0.93 NG/DL (0.76-1.46); GLOMERULAR FILTRATION RATE > 60.0 (>60); GLUCOSE, FASTING 82 MG/DL (70-100); LIPASE 169 U/L (73-393); MB/CK RELATIVE INDEX 1.54 (< OR =4); SODIUM LEVEL 139 MEQ/L (136-145); TOTAL PROTEIN 7.3 GM/DL (6.4-8.2); TROPONIN I < 0.02 NG/ML (< 0.10)
--- NOTE | 2020-08-07 09:22 | REP ---
INDICATION: epigastric abd pain, h/o "GB issues" COMPARISON: 04/11/2019 TECHNIQUE: Real time quezada scale ultrasound examination using curved array transducer. FINDINGS: Liver is normal in contour, size, and echogenicity without focal hepatic lesions identified. Pancreas is incompletely evaluated due to interposed bowel gas. The gallbladder is normal and without gallstones, wall thickening, or pericholecystic fluid. No biliary ductal dilatation is appreciated and the common bile duct measures 5.0 mm diameter. Right kidney is normal in reniform shape without hydronephrosis and measures 10.7 x 5.5 x 3.7 cm. No ascites in the visualized right upper quadrant. IMPRESSION: Normal limited right upper quadrant ultrasound <Electronically signed by Ari Oden > 08/07/20 0944
[2020-08-07] MEDS ORDERED: GI COCKTAIL 50ML BTL(HYOSCYAMINE/MAALOX/LIDOCAINE VISCOUS)(1:3:1) PO ONE (10:30)
[2020-08-07] MEDS ORDERED: OMEP40CA97 PO (11:38)
[2020-08-07 11:46] VITALS: BP 125/69
--- NOTE | 2020-08-07 16:13 | ECGEPIP ---
[facility] - ED Test Date: 2020-08-07 Pat Name: PARMINDER DUMONT Department: Room: - Gender: Female System Programmer: : 1995 Requested By: JAVIER Lewis PA-C Order Number: [id number] Reading MD: Elliott Ruvalcaba Measurements Intervals [place] Rate: 71 P: 50 ME: 153 QRS: 26 QRSD: 101 T: 27 QT: 415 QTc: 453 Interpretive Statements SINUS RHYTHM NONSPECIFIC ST T WAVE CHANGES CW 04/15/[address] T WAVE CHANGES Electronically Signed on 08-07-2020 16:12:36 EDT by Elliott Ruvalcaba
== END 2020-08-07 11:48 | disposition home or self-care (01) ==
LOC: M ED 07:41
DX: K29.70 Gastritis, unspecified, without bleeding (principal); K21.9 Gastro-esophageal reflux disease without esophagitis; F41.9 Anxiety disorder, unspecified; M41.9 Scoliosis, unspecified; Z79.899 Other long term (current) drug therapy
CPT/HCPCS: 36415; 74021; 76705; 80048; 80076; 81001; 82550; 82553; 83690; 84439; 84443; 84702; 85025; 87086; 93005; 96361; 96374; 96375; 99284; C9113; J2405

== ENCOUNTER 2021-04-30 19:30 | Emergency (ER) | payer OTHER ==
[~2021-04-30] VITALS: Ht 165.1 cm; Wt 99.4 kg
[~2021-04-30 19:30] MED LIST changes: +OMEP40CA4 PO
[2021-04-30 19:31] VITALS: BP 138/73
== END 2021-04-30 20:45 | disposition left against medical advice (07) ==
LOC: M ED 19:30
DX: Z53.21 Procedure and treatment not carried out due to patient leaving prior to being seen by health care provider (principal)

== ENCOUNTER → 2021-05-12 | Outpatient (CLI) | payer OTHER ==
[2021-05-12 13:13] LABS: BASO % 0.6 % (0.0-1.0); EOS # 0.2 10^3/uL (0.0-0.5); EOS % 2.5 % (0.0-3.0); HEMATOCRIT 41.3 % (36.0-47.0); LYMPH # 2.5 10^3/uL (1.5-5.0); LYMPH % 34.6 % (24.0-44.0); MEAN CORPUSCULAR HEMOGLOBIN 30.6 pg (27.0-33.0); MEAN CORPUSCULAR HGB CONC 33.9 g/dl (32.0-36.5); MEAN CORPUSCULAR VOLUME 90.4 fl (80.0-96.0); MONO # 0.7 10^3/uL (0.0-0.8); MONO % 9.7 % (2.0-8.0); NEUTROPHILS # 3.8 10^3/uL (1.5-8.5); NEUTROPHILS % 52.3 % (36.0-66.0); PLATELET COUNT, AUTOMATED 233 10^3/uL (150-450); RED BLOOD COUNT 4.57 10^6/uL (4.00-5.40); WHITE BLOOD COUNT 7.3 10^3/uL (4.0-10.0)
[2021-05-12 13:50] LABS: ALBUMIN 3.6 GM/DL (3.2-5.2); ALT/SGPT 22 U/L (12-78); BILIRUBIN,TOTAL 0.4 MG/DL (0.2-1.0); BLOOD UREA NITROGEN 11 MG/DL (7-18); CALCIUM LEVEL 8.6 MG/DL (8.5-10.1); CARBON DIOXIDE LEVEL 26 MEQ/L (21-32); CHLORIDE LEVEL 109 MEQ/L (98-107); CREATININE FOR GFR 0.64 MG/DL (0.55-1.30); FREE T4 0.82 NG/DL (0.76-1.46); GLOMERULAR FILTRATION RATE > 60.0 (>60); GLUCOSE, FASTING 74 MG/DL (70-100); SODIUM LEVEL 140 MEQ/L (136-145); TOTAL PROTEIN 7.5 GM/DL (6.4-8.2)
[2021-05-13 13:07] LABS: Lyme Disease IgG/IgM Antibodie <0.91 ISR (0.00-0.90); Lyme Disease IgM Ab Quantitati <0.80 index (0.00-0.79)
== END ==
LOC: M PLALAB 11:00
PROVIDERS: ATTEND Physician Assistant
DX: N64.52 Nipple discharge (principal); R21 Rash and other nonspecific skin eruption; M25.50 Pain in unspecified joint; R63.5 Abnormal weight gain

== ENCOUNTER → 2021-10-06 | Outpatient (CLI) | payer OTHER | LOC: M LABSMTC 12:14 | PROVIDERS: ATTEND Pediatrics | DX: Z20.822 Contact with and (suspected) exposure to COVID-19 (principal) ==

== ENCOUNTER 2021-11-29 08:06 | Emergency (ER) | payer OTHER ==
[~2021-11-29] VITALS: Ht 165.1 cm; Wt 95.8 kg
[2021-11-29] MEDS ORDERED: SUCRALFATE 1 GM TAB PO ONE (10:10)
[2021-11-29] MEDS ORDERED: PANTOPRAZOLE 40MG VIAL (C9113 PER 1) IV ONE (10:10)
[2021-11-29] MEDS ORDERED: GI COCKTAIL 50ML BTL(HYOSCYAMINE/MAALOX/LIDOCAINE VISCOUS)(1:3:1) PO ONE (10:10)
[2021-11-29 10:37] LABS: BASO % 0.3 % (0.0-1.0); EOS # 0.1 10^3/uL (0.0-0.5); HEMATOCRIT 45.1 % (36.0-47.0); HEMOGLOBIN 15.6 g/dl (12.0-15.5); LYMPH # 1.7 10^3/uL (1.5-5.0); LYMPH % 28.3 % (24.0-44.0); MEAN CORPUSCULAR HEMOGLOBIN 30.6 pg (27.0-33.0); MEAN CORPUSCULAR HGB CONC 34.6 g/dl (32.0-36.5); MEAN CORPUSCULAR VOLUME 88.4 fl (80.0-96.0); MONO # 0.5 10^3/uL (0.0-0.8); MONO % 7.6 % (2.0-8.0); NEUTROPHILS # 3.8 10^3/uL (1.5-8.5); NEUTROPHILS % 61.6 % (36.0-66.0); PLATELET COUNT, AUTOMATED 228 10^3/uL (150-450); WHITE BLOOD COUNT 6.1 10^3/uL (4.0-10.0)
[2021-11-29 11:05] LABS: ALBUMIN 3.9 GM/DL (3.2-5.2); ALT/SGPT 29 U/L (12-78); BILIRUBIN,DIRECT 0.2 MG/DL (0.0-0.2); BILIRUBIN,TOTAL 0.8 MG/DL (0.2-1.0); BLOOD UREA NITROGEN 6 MG/DL (7-18); CALCIUM LEVEL 9.2 MG/DL (8.5-10.1); CARBON DIOXIDE LEVEL 27 MEQ/L (21-32); CHLORIDE LEVEL 107 MEQ/L (98-107); CREATININE FOR GFR 0.72 MG/DL (0.55-1.30); GLOMERULAR FILTRATION RATE > 60.0 (>60); GLUCOSE, FASTING 85 MG/DL (70-100); LIPASE 143 U/L (73-393); POTASSIUM SERUM 3.8 MEQ/L (3.5-5.1); SODIUM LEVEL 140 MEQ/L (136-145); TOTAL PROTEIN 7.6 GM/DL (6.4-8.2)
[2021-11-29] MEDS ORDERED: DICYCLOMINE 10 MG CAP PO ONE (11:35)
[2021-11-29] MEDS ORDERED: FAMOTIDINE IV BAG 20 MG in IV 1 EA IV ONE (11:35)
[2021-11-29] MEDS ORDERED: FAMOTIDINE INJ 20MG/2ML VIAL (S0028 PER 1) As Ordered ONE (12:31)
[2021-11-29] MEDS ORDERED: ISOVUE-370 76% 100ML VIAL As Ordered ONE (13:54)
[2021-11-29 15:15] VITALS: BP 134/73
== END 2021-11-29 15:18 | disposition home or self-care (01) ==
LOC: M ED 08:06
DX: K42.9 Umbilical hernia without obstruction or gangrene (principal); M41.9 Scoliosis, unspecified; Z91.040 Latex allergy status
CPT/HCPCS: 74160; 76705; 80048; 80076; 83690; 84702; 85025; 96374; 96375; 99284; C9113; Q9967

== ENCOUNTER 2023-01-14 04:07 | Emergency (ER) | payer OTHER ==
[~2023-01-14] VITALS: Ht 165.1 cm; Wt 93.7 kg
[2023-01-14] MEDS ORDERED: IPRATROPIUM 0.5MG/ALBUTEROL 2.5MG INH SOL UD 3ML (DUONEB) NEB ONE (06:35)
[2023-01-14 07:06] LABS: BASO # 0.1 10^3/uL (0.0-0.2); BASO % 0.8 % (0.0-1.0); EOS # 0.2 10^3/uL (0.0-0.5); HEMATOCRIT 42.8 % (36.0-47.0); HEMOGLOBIN 15.1 g/dl (12.0-15.5); LYMPH # 1.6 10^3/uL (1.5-5.0); LYMPH % 26.2 % (24.0-44.0); MEAN CORPUSCULAR HEMOGLOBIN 31.3 pg (27.0-33.0); MEAN CORPUSCULAR HGB CONC 35.3 g/dl (32.0-36.5); MEAN CORPUSCULAR VOLUME 88.8 fl (80.0-96.0); MONO # 0.5 10^3/uL (0.0-0.8); MONO % 8.1 % (2.0-8.0); NEUTROPHILS # 3.7 10^3/uL (1.5-8.5); NEUTROPHILS % 60.6 % (36.0-66.0); PLATELET COUNT, AUTOMATED 270 10^3/uL (150-450); RED BLOOD COUNT 4.82 10^6/uL (4.00-5.40)
[2023-01-14 07:33] LABS: BLOOD UREA NITROGEN 9 MG/DL (9-23); CALCIUM LEVEL 8.8 MG/DL (8.5-10.1); CARBON DIOXIDE LEVEL 26 MMOL/L (20-31); CHLORIDE LEVEL 105 MMOL/L (98-107); CREATININE FOR GFR 0.62 MG/DL (0.55-1.30); GLOMERULAR FILTRATION RATE > 60.0 (>60); GLUCOSE, FASTING 87 MG/DL (60-100); POTASSIUM SERUM 3.7 MMOL/L (3.5-5.1); SODIUM LEVEL 137 MMOL/L (136-145)
[2023-01-14] MEDS ORDERED: PROA1AER2 INH (07:58)
[2023-01-14 08:15] VITALS: BP 126/79
== END 2023-01-14 08:31 | disposition home or self-care (01) ==
LOC: M ED 04:07
DX: R06.02 Shortness of breath (principal); J10.1 Influenza due to other identified influenza virus with other respiratory manifestations; Z91.040 Latex allergy status

== ENCOUNTER → 2023-01-27 | Outpatient (REF) | payer OTHER ==
[~2023-01-27] MED LIST changes: +PROA1AER2 INH
== END ==
LOC: M LAB REF 12:27
PROVIDERS: ATTEND Physician Assistant Medical
DX: J02.9 Acute pharyngitis, unspecified (principal)

== ENCOUNTER → 2023-01-30 | Outpatient (CLI) | payer OTHER ==
[2023-01-30 18:01] LABS: BASO % 0.5 % (0.0-1.0); EOS # 0.2 10^3/uL (0.0-0.5); EOS % 2.7 % (0.0-3.0); HEMATOCRIT 45.8 % (36.0-47.0); HEMOGLOBIN 15.6 g/dl (12.0-15.5); LYMPH # 1.9 10^3/uL (1.5-5.0); LYMPH % 25.4 % (24.0-44.0); MEAN CORPUSCULAR HGB CONC 34.1 g/dl (32.0-36.5); MEAN CORPUSCULAR VOLUME 91.1 fl (80.0-96.0); MONO # 0.7 10^3/uL (0.0-0.8); MONO % 9.1 % (2.0-8.0); NEUTROPHILS # 4.5 10^3/uL (1.5-8.5); PLATELET COUNT, AUTOMATED 240 10^3/uL (150-450); RED BLOOD COUNT 5.03 10^6/uL (4.00-5.40); WHITE BLOOD COUNT 7.3 10^3/uL (4.0-10.0)
[2023-01-30 18:33] LABS: ERYTHROCYTE SEDIMENTATION RATE 19 mm/hr (0-20)
[2023-01-30 18:34] LABS: THYROID STIMULATING HORMONE 2.114 uIU/ML (0.55-4.78)
[2023-01-30 18:35] LABS: MONO REFLEX EBV VCA IgM NEGATIVE (NEGATIVE)
[2023-01-30 18:36] LABS: ALBUMIN 3.6 G/DL (3.2-5.2); ALKALINE PHOSPHATASE 85 U/L (46-116); ALT/SGPT < 9 U/L (7.0-40); AST/SGOT 16 U/L (<34); BILIRUBIN,TOTAL 0.6 MG/DL (0.3-1.2); BLOOD UREA NITROGEN 10 MG/DL (9-23); CALCIUM LEVEL 8.9 MG/DL (8.5-10.1); CARBON DIOXIDE LEVEL 28 MMOL/L (20-31); CHLORIDE LEVEL 104 MMOL/L (98-107); CREATININE FOR GFR 0.66 MG/DL (0.55-1.30); GLOMERULAR FILTRATION RATE > 60.0 (>60); GLUCOSE, FASTING 69 MG/DL (60-100); POTASSIUM SERUM 3.6 MMOL/L (3.5-5.1); SODIUM LEVEL 140 MMOL/L (136-145); TOTAL PROTEIN 7.3 G/DL (5.7-8.2)
[2023-01-30 18:38] LABS: FREE T4 1.01 NG/DL (0.89-1.76)
[2023-02-01 14:08] LABS: EBV VIRAL CAPSID AG IgM <36.0 U/mL (0.0-35.9)
== END ==
LOC: M PLALAB 15:07
PROVIDERS: ATTEND Physician Assistant
DX: J03.90 Acute tonsillitis, unspecified (principal); R53.83 Other fatigue; R51.9 Headache, unspecified

== ENCOUNTER → 2023-09-27 | Outpatient (CLI) | payer OTHER | LOC: M ADAMS 13:47 | PROVIDERS: ATTEND Physician Assistant Medical | DX: M79.671 Pain in right foot (principal) ==

== ENCOUNTER → 2023-10-04 | Outpatient (REF) | payer OTHER ==
[2023-10-04 17:57] LABS: APPEARANCE, URINE CLEAR (CLEAR); BACTERIA, URINE AUTO NEGATIVE (NEGATIVE); BILIRUBIN, URINE AUTO NEGATIVE (NEGATIVE); BLOOD, URINE BLOOD NEGATIVE (NEGATIVE); COLOR, URINE YELLOW (YELLOW); GLUCOSE, URINE (UA) AUTO NEGATIVE (NEGATIVE); KETONE, URINE AUTO NEGATIVE (NEGATIVE); LEUKOCYTE ESTERASE, URINE AUTO NEGATIVE (NEGATIVE); MUCUS, URINE SMALL (NEGATIVE); NITRITE, URINE AUTO NEGATIVE (NEGATIVE); PROTEIN, URINE AUTO NEGATIVE (NEGATIVE); RBC, URINE AUTO 1 /HPF (0-3); SPECIFIC GRAVITY URINE AUTO 1.025 (1.002-1.035); SQUAMOUS EPITHELIAL CELL UR AU 3 /HPF (0-6); UROBILINOGEN, URINE AUTO 0.2 mg/dL (0.0-2.0); WBC, URINE AUTO 1 /HPF (0-3)
== END ==
LOC: M SFHCPLAZ 17:05
PROVIDERS: ATTEND Family Medicine
DX: R39.15 Urgency of urination (principal); Z12.4 Encounter for screening for malignant neoplasm of cervix; N89.8 Other specified noninflammatory disorders of vagina

== ENCOUNTER → 2023-10-19 | Outpatient (CLI) | payer OTHER | LOC: M WHC 07:36 | PROVIDERS: ATTEND Family Medicine | DX: R10.11 Right upper quadrant pain (principal) ==

== ENCOUNTER → 2024-01-31 | Outpatient (REF) | payer OTHER | LOC: M SFHCWAGY 09:50 | PROVIDERS: ATTEND Nurse Practitioner Family | DX: N94.10 Unspecified dyspareunia (principal) ==

== ENCOUNTER 2024-04-22 11:39 | Emergency (ER) | payer OTHER ==
[~2024-04-22] VITALS: Ht 167.6 cm; Wt 106.0 kg
[~2024-04-22 11:39] MED LIST changes: +ONDA-282 PO; -ONDA4TAB6 PO
[2024-04-22] MEDS ORDERED: OMEP40CA5 (11:49)
[2024-04-22] MEDS ORDERED: FLUTISP (11:49)
[2024-04-22] MEDS ORDERED: FEXO-112 (11:49)
[2024-04-22] MEDS ORDERED: NEUR300C PO (14:12)
[2024-04-22 14:22] VITALS: BP 133/84; TEMP 98.1; O2SAT 99
== END 2024-04-22 14:25 | disposition home or self-care (01) ==
LOC: M ED 11:39
DX: R22.43 Localized swelling, mass and lump, lower limb, bilateral (principal); M79.606 Pain in leg, unspecified; E66.9 Obesity, unspecified; K21.9 Gastro-esophageal reflux disease without esophagitis; F41.9 Anxiety disorder, unspecified; M41.9 Scoliosis, unspecified; Z91.040 Latex allergy status

== ENCOUNTER → 2024-04-30 | Outpatient (CLI) | payer OTHER ==
[~2024-04-30] MED LIST changes: +FEXO-112; +FLUTISP; +NEUR300C PO; +OMEP40CA5
[2024-04-30 12:43] LABS: HEMOGLOBIN A1c 4.9 % (4.0-6.0)
== END ==
LOC: M RAD 10:55
PROVIDERS: ATTEND Nurse Practitioner Adult Health
DX: M79.641 Pain in right hand (principal); M25.462 Effusion, left knee; M79.672 Pain in left foot

== ENCOUNTER → 2024-07-17 | Outpatient (CLI) | payer OTHER | LOC: M SOG 07:24 | PROVIDERS: ATTEND Physician Assistant | DX: M25.532 Pain in left wrist (principal); M25.531 Pain in right wrist; Z53.9 Procedure and treatment not carried out, unspecified reason ==